=== PATIENT | male | born 1955 | race Caucasian/White ===

== ENCOUNTER → 2016-03-31 | Outpatient (CLI) | payer OTHER ==
[~2016-03-31] MED LIST: Ambien PO; BUPROPION HCL100 M1 PO; BUPROPION HCL150 M2 PO; CLONAZEPAM0.5 MG PO; DESYREL 150 MG150 MG PO; ENDOCET 5-3251 EACH PO; GEODON60 MG PO; GLUCOPHAGE1000 MG PO; Glucophage PO; HUMALOG100 UNIT/1 SC; HUMULIN R500 UNITS/ SC; Habitrol,Nicoderm CQ TD; INVanz IV; LANTUS 3 M100 UNITS1 SC; LEVOFLOXACIN750 MG PO; LISINOPRIL40 MG PO; Lexapro PO; METFORMIN HCL1000 MG PO; NOVOLOG PE100 UNITS/ SC; OXYCODONE-ACET1 EACH PO; ROCEPHIN1000 MG IV; SIMVASTATIN40 MG PO; TRAZODONE HCL150 MG PO; WELLBUTRIN SR200 MG PO; Xanax PO; ZESTRIL40 MG PO; ZOCOR40 MG PO; ZOCOR80 MG PO; Zestril,Prinivil PO
== END | disposition home or self-care (01) ==
LOC: PICC 14:53
DX: M86.671 Other chronic osteomyelitis, right ankle and foot (principal)
CPT/HCPCS: 76937

== ENCOUNTER 2016-07-10 15:39 | Inpatient (IN) | payer OTHER ==
[~2016-07-10] VITALS: Ht 177.8 cm; Wt 117.7 kg
[~2016-07-10 15:39] MED LIST changes: -BACTRIM,SEPT1 TABLET PO; -HUMALOG KW200 UNIT/1 SC; -NAPROXEN500 MG PO; -PROPRANOLOL HCL20 MG PO; -TRULICITY1.5 MG/0.5 SC
[2016-07-10 16:39] LABS: EOSINOPHIL (%) 0.3 % (0-5); HEMATOCRIT 27.6 % (38.0-50.0); IMMATURE GRANULOCYTE (%) 4.5 % (0.0-0.7); IMMATURE GRANULOCYTE COUNT 0.7 K/uL; INSTRUMENT ABS NEUTROPHIL CT 12.4 K/uL; LYMPHOCYTE COUNT 1.3 K/uL (1.0-2.8); MCH 30.7 PG (29.0-34.0); MCHC 34.4 G/DL (30.0-36.0); MCV 89.3 FL (86-99); MEAN PLAT.VOLUME 9.6 uM^3 (9.0-12.4); MONOCYTE (%) 5.6 % (3-12); MONOCYTE COUNT 0.9 K/uL (0-0.8); NEUTROPHIL (%) 81.2 % (45-76); NEUTROPHIL COUNT 12.4 K/uL (1.8-6.4); PLATELET COUNT 432 K/uL (156-360); RBC DIS.WIDTH-CV 13.1 % (11.8-14.6); RBC DIS.WIDTH-SD 42.5 % (39-53); RED BLOOD COUNT 3.09 M/uL (4.00-5.50); WHITE BLOOD COUNT 15.2 K/uL (4.1-10.2)
[2016-07-10 16:50] LABS: CHLORIDE 92 mEq/L (99-109); POTASSIUM 4.7 mEq/L (3.7-5.4); SODIUM 128 mEq/L (136-147)
[2016-07-10 16:52] LABS: GLUCOSE 227 mg/dL (70-99)
[2016-07-10 16:53] LABS: ANION GAP 9 MEQ/L (2-14)
[2016-07-10 16:56] LABS: GFR ESTIMATE (CALCULATED) 35 mL/min/
[2016-07-10 16:57] LABS: UREA NITROGEN (BUN) 32 mg/dL (9-23)
[2016-07-10] MEDS ORDERED: HUMALOG KW200 UNIT/1 SC (19:50)
[2016-07-10] MEDS ORDERED: NAPROXEN500 MG PO (19:51)
[2016-07-10] MEDS ORDERED: BACTRIM,SEPT1 TABLET PO (19:51)
[2016-07-10] MEDS ORDERED: TRULICITY1.5 MG/0.5 SC (19:51)
[2016-07-10] MEDS ORDERED: BUPROPION HCL150 M2 PO (19:52)
[2016-07-10] MEDS ORDERED: PROPRANOLOL HCL20 MG PO (19:52)
[2016-07-10] MEDS ORDERED: SIMVASTATIN40 MG PO (19:52)
[2016-07-10 22:02] LABS: URIC ACID 7.2 mg/dL (3.1-9.2)
[2016-07-10 22:53] LABS: FERRITIN 774 NG/ML (22-322)
[2016-07-10 22:56] VITALS: BP 143/67
[2016-07-10 23:52] VITALS: BP 152/70
[2016-07-10 23:56] LABS: IRON 30 MCG/DL (35-150)
[2016-07-11 03:29] VITALS: BP 135/81
[2016-07-11 05:21] LABS: EOSINOPHIL (%) 0.6 % (0-5); EOSINOPHIL COUNT 0.1 K/uL (0-0.3); IMMATURE GRANULOCYTE (%) 4.7 % (0.0-0.7); IMMATURE GRANULOCYTE COUNT 0.6 K/uL; INSTRUMENT ABS NEUTROPHIL CT 10.2 K/uL; LYMPHOCYTE COUNT 1.2 K/uL (1.0-2.8); MCH 30.7 PG (29.0-34.0); MCHC 34.2 G/DL (30.0-36.0); MCV 89.9 FL (86-99); MEAN PLAT.VOLUME 9.5 uM^3 (9.0-12.4); MONOCYTE COUNT 0.9 K/uL (0-0.8); NEUTROPHIL (%) 78.5 % (45-76); NEUTROPHIL COUNT 10.2 K/uL (1.8-6.4); PLATELET COUNT 336 K/uL (156-360); RBC DIS.WIDTH-CV 13.1 % (11.8-14.6); RED BLOOD COUNT 2.67 M/uL (4.00-5.50)
[2016-07-11 05:54] LABS: ANION GAP 9 MEQ/L (2-14); CHLORIDE 94 MEQ/L (99-109); GFR ESTIMATE (CALCULATED) 39 mL/min/; GLUCOSE 165 mg/dL (70-99); POTASSIUM 4.2 MEQ/L (3.7-5.4); SAMPLE HEMOLYSIS CHECK 0; SAMPLE ICTERIC CHECK 0; SAMPLE LIPEMIA CHECK 0; SODIUM 128 MEQ/L (136-147); UREA NITROGEN (BUN) 30 mg/dL (9-23)
[2016-07-11 08:00] VITALS: BP 128/58
[2016-07-11 12:02] VITALS: BP 136/66
[2016-07-11 12:11] LABS: POINT-OF-CARE METER ID UU14188577
[2016-07-11 16:43] LABS: POINT-OF-CARE METER ID UU14188577
[2016-07-11 17:15] VITALS: BP 143/68
[2016-07-11 20:25] VITALS: BP 142/74
[2016-07-11 21:54] LABS: POINT-OF-CARE METER ID UU14149397
[2016-07-12 00:28] VITALS: BP 149/71
[2016-07-12 04:12] VITALS: BP 139/66
[2016-07-12 05:27] LABS: HEMATOCRIT 25.6 % (38.0-50.0); MCH 30.2 PG (29.0-34.0); MCHC 33.6 G/DL (30.0-36.0); MCV 89.8 FL (86-99); MEAN PLAT.VOLUME 9.4 uM^3 (9.0-12.4); PLATELET COUNT 349 K/uL (156-360); RBC DIS.WIDTH-SD 42.9 % (39-53); RED BLOOD COUNT 2.85 M/uL (4.00-5.50); WHITE BLOOD COUNT 12.5 K/uL (4.1-10.2)
[2016-07-12 06:01] LABS: ALKALINE PHOSPHATASE 72 IU/L (3-129); ANION GAP 8 MEQ/L (2-14); CHLORIDE 96 MEQ/L (99-109); GFR ESTIMATE (CALCULATED) 47 mL/min/; POTASSIUM 4.8 MEQ/L (3.7-5.4); SAMPLE HEMOLYSIS CHECK 0; SAMPLE ICTERIC CHECK 0; SAMPLE LIPEMIA CHECK 0; SODIUM 129 MEQ/L (136-147); TOTAL BILIRUBIN 0.5 MG/DL (0.0-1.0); UREA NITROGEN (BUN) 20 mg/dL (9-23)
[2016-07-12 06:02] LABS: GLUCOSE 108 mg/dL (70-99)
[2016-07-12 06:45] LABS: ABS NEUTROPHIL COUNT 10.6; EOSINOPHIL ABS CT 0.3; EOSINOPHILS 2.6 % (0-5.0); INSTRUMENT ABS NEUTROPHIL CT 9.5 K/uL; LYMPHOCYTES 10.4 % (15.0-45.0); METAMYELOCYTES 0.9 %; PLAT.SUFFICIENCY ADEQUATE; SEG.NEUTROPHILS 84.4 % (46.0-76.0)
[2016-07-12 07:00] VITALS: BP 135/68
[2016-07-12 12:01] LABS: POINT-OF-CARE METER ID UU14188577
[2016-07-12 15:17] LABS: POINT-OF-CARE METER ID UU13113675
[2016-07-12 19:38] VITALS: BP 143/71
[2016-07-12 22:20] LABS: ADD MIUA? YES; BILIRUBIN NEGATIVE; BLOOD LARGE; COLOR YELLOW ((YELLOW)); GLUCOSE (STRIP) 50; KETONES 5; LEUKOCYTES NEGATIVE; NITRITE NEGATIVE; PROTEIN (STRIP) NEGATIVE; SPECIFIC GRAVITY 1.012 (1.000-1.030); UROBILINOGEN 0.2 MG/DL (0.2-1.0)
[2016-07-12 23:04] LABS: UNCLASSIFIED CRYSTALS 2+ /HPF
[2016-07-12 23:13] LABS: BACTERIA RARE /HPF; CASTS NONE SEEN /LPF; CRYSTALS NONE SEEN; EPITHELIAL CELLS NONE SEEN /HPF; MUCUS TRACE /LPF; RED BLOOD CELLS 20-30 /HPF (0-5); UCUL ADDED? NO; WHITE BLOOD CELLS 0-5 /HPF (0-5)
[2016-07-13] VITALS (7 sets, daily range): BP systolic 127–156; BP diastolic 67–78
[2016-07-13 05:26] LABS: EOSINOPHIL (%) 1.3 % (0-5); EOSINOPHIL COUNT 0.2 K/uL (0-0.3); HEMATOCRIT 24.7 % (38.0-50.0); IMMATURE GRANULOCYTE (%) 4.9 % (0.0-0.7); IMMATURE GRANULOCYTE COUNT 0.6 K/uL; INSTRUMENT ABS NEUTROPHIL CT 8.3 K/uL; LYMPHOCYTE COUNT 1.4 K/uL (1.0-2.8); MCH 30.6 PG (29.0-34.0); MCHC 33.6 G/DL (30.0-36.0); MCV 91.1 FL (86-99); MEAN PLAT.VOLUME 9.2 uM^3 (9.0-12.4); MONOCYTE (%) 6.1 % (3-12); MONOCYTE COUNT 0.7 K/uL (0-0.8); NEUTROPHIL (%) 74.7 % (45-76); NEUTROPHIL COUNT 8.3 K/uL (1.8-6.4); PLATELET COUNT 317 K/uL (156-360); RBC DIS.WIDTH-CV 13.2 % (11.8-14.6); RBC DIS.WIDTH-SD 44.2 % (39-53); RED BLOOD COUNT 2.71 M/uL (4.00-5.50); WHITE BLOOD COUNT 11.1 K/uL (4.1-10.2)
[2016-07-13 05:49] LABS: ALKALINE PHOSPHATASE 62 IU/L (3-129); ANION GAP 6 MEQ/L (2-14); CHLORIDE 97 MEQ/L (99-109); GFR ESTIMATE (CALCULATED) 51 mL/min/; GLUCOSE 124 mg/dL (70-99); POTASSIUM 4.9 MEQ/L (3.7-5.4); SAMPLE HEMOLYSIS CHECK 0; SAMPLE ICTERIC CHECK 0; SAMPLE LIPEMIA CHECK 0; SODIUM 129 MEQ/L (136-147); TOTAL BILIRUBIN 0.4 MG/DL (0.0-1.0); UREA NITROGEN (BUN) 18 mg/dL (9-23)
[2016-07-13 12:09] LABS: POINT-OF-CARE METER ID UU14149397
[2016-07-13 16:52] LABS: POINT-OF-CARE METER ID UU14149397
[2016-07-13 21:26] LABS: POINT-OF-CARE METER ID UU14188577
[2016-07-14 05:25] LABS: EOSINOPHIL (%) 1.2 % (0-5); EOSINOPHIL COUNT 0.2 K/uL (0-0.3); HEMATOCRIT 24.8 % (38.0-50.0); IMMATURE GRANULOCYTE (%) 3.9 % (0.0-0.7); IMMATURE GRANULOCYTE COUNT 0.5 K/uL; INSTRUMENT ABS NEUTROPHIL CT 9.6 K/uL; LYMPHOCYTE COUNT 1.6 K/uL (1.0-2.8); MCH 29.7 PG (29.0-34.0); MCHC 32.7 G/DL (30.0-36.0); MCV 90.8 FL (86-99); MEAN PLAT.VOLUME 9.1 uM^3 (9.0-12.4); MONOCYTE (%) 6.5 % (3-12); MONOCYTE COUNT 0.8 K/uL (0-0.8); NEUTROPHIL (%) 75.5 % (45-76); NEUTROPHIL COUNT 9.6 K/uL (1.8-6.4); PLATELET COUNT 318 K/uL (156-360); RBC DIS.WIDTH-CV 13.1 % (11.8-14.6); RBC DIS.WIDTH-SD 43.1 % (39-53); RED BLOOD COUNT 2.73 M/uL (4.00-5.50); WHITE BLOOD COUNT 12.7 K/uL (4.1-10.2)
[2016-07-14 05:48] LABS: ALKALINE PHOSPHATASE 59 IU/L (3-129); ANION GAP 5 MEQ/L (2-14); CHLORIDE 99 MEQ/L (99-109); GFR ESTIMATE (CALCULATED) 55 mL/min/; GLUCOSE 97 mg/dL (70-99); POTASSIUM 4.9 MEQ/L (3.7-5.4); SAMPLE HEMOLYSIS CHECK 0; SAMPLE ICTERIC CHECK 0; SAMPLE LIPEMIA CHECK 0; SODIUM 130 MEQ/L (136-147); TOTAL BILIRUBIN 0.4 MG/DL (0.0-1.0); UREA NITROGEN (BUN) 16 mg/dL (9-23)
[2016-07-14 06:23] LABS: POINT-OF-CARE METER ID UU14149397
[2016-07-14 08:01] VITALS: BP 141/67
[2016-07-14 11:18] VITALS: BP 164/84
[2016-07-14 12:00] LABS: POINT-OF-CARE METER ID UU14149397
[2016-07-14 16:23] VITALS: BP 174/80
[2016-07-14 19:34] VITALS: BP 146/76
[2016-07-14 23:39] VITALS: BP 136/69
[2016-07-15 05:11] LABS: HEMATOCRIT 23.5 % (38.0-50.0); MCH 30.1 PG (29.0-34.0); MCHC 32.8 G/DL (30.0-36.0); MCV 91.8 FL (86-99); MEAN PLAT.VOLUME 9.1 uM^3 (9.0-12.4); PLATELET COUNT 283 K/uL (156-360); RBC DIS.WIDTH-CV 13.3 % (11.8-14.6); RBC DIS.WIDTH-SD 44.9 % (39-53); RED BLOOD COUNT 2.56 M/uL (4.00-5.50)
[2016-07-15 05:35] LABS: ANION GAP 6 MEQ/L (2-14); CHLORIDE 98 MEQ/L (99-109); GFR ESTIMATE (CALCULATED) 55 mL/min/; GLUCOSE 130 mg/dL (70-99); POTASSIUM 4.7 MEQ/L (3.7-5.4); SAMPLE HEMOLYSIS CHECK 0; SAMPLE ICTERIC CHECK 0; SAMPLE LIPEMIA CHECK 0; SODIUM 131 MEQ/L (136-147); UREA NITROGEN (BUN) 13 mg/dL (9-23)
[2016-07-15 08:55] VITALS: BP 158/74
[2016-07-15 09:01] LABS: POINT-OF-CARE METER ID UU14188577
[2016-07-15 11:10] LABS: FERRITIN 457 NG/ML (22-322); IRON 55 MCG/DL (35-150)
[2016-07-15 16:54] LABS: POINT-OF-CARE METER ID UU14188577
[2016-07-15 17:45] VITALS: BP 160/75
[2016-07-15 23:28] VITALS: BP 130/71
[2016-07-16 05:56] LABS: ANION GAP 5 MEQ/L (2-14); CHLORIDE 99 MEQ/L (99-109); GFR ESTIMATE (CALCULATED) 55 mL/min/; GLUCOSE 105 mg/dL (70-99); POTASSIUM 4.4 MEQ/L (3.7-5.4); SAMPLE HEMOLYSIS CHECK 0; SAMPLE ICTERIC CHECK 0; SAMPLE LIPEMIA CHECK 0; SODIUM 133 MEQ/L (136-147); UREA NITROGEN (BUN) 11 mg/dL (9-23)
[2016-07-16 05:59] LABS: HEMATOCRIT 24.7 % (38.0-50.0); MCH 30.2 PG (29.0-34.0); MCHC 32.8 G/DL (30.0-36.0); MCV 92.2 FL (86-99); MEAN PLAT.VOLUME 9.3 uM^3 (9.0-12.4); PLATELET COUNT 305 K/uL (156-360); RBC DIS.WIDTH-CV 13.3 % (11.8-14.6); RBC DIS.WIDTH-SD 44.8 % (39-53); RED BLOOD COUNT 2.68 M/uL (4.00-5.50); WHITE BLOOD COUNT 9.7 K/uL (4.1-10.2)
[2016-07-16 07:56] VITALS: BP 167/81
[2016-07-16 11:47] LABS: POINT-OF-CARE METER ID UU14188577
[2016-07-16 16:44] VITALS: BP 160/68
[2016-07-16 22:35] LABS: POINT-OF-CARE METER ID UU14188577
[2016-07-17 00:52] VITALS: BP 130/66
[2016-07-17 05:04] LABS: EOSINOPHIL (%) 1.3 % (0-5); EOSINOPHIL COUNT 0.1 K/uL (0-0.3); HEMATOCRIT 23.8 % (38.0-50.0); IMMATURE GRANULOCYTE (%) 1.7 % (0.0-0.7); IMMATURE GRANULOCYTE COUNT 0.2 K/uL; LYMPHOCYTE COUNT 2.1 K/uL (1.0-2.8); MCH 29.9 PG (29.0-34.0); MCHC 33.2 G/DL (30.0-36.0); MCV 90.2 FL (86-99); MEAN PLAT.VOLUME 9.1 uM^3 (9.0-12.4); MONOCYTE (%) 6.1 % (3-12); MONOCYTE COUNT 0.7 K/uL (0-0.8); NEUTROPHIL (%) 71.5 % (45-76); PLATELET COUNT 313 K/uL (156-360); RBC DIS.WIDTH-CV 13.5 % (11.8-14.6); RBC DIS.WIDTH-SD 43.8 % (39-53); RED BLOOD COUNT 2.64 M/uL (4.00-5.50); WHITE BLOOD COUNT 11.2 K/uL (4.1-10.2)
[2016-07-17 05:21] LABS: CHLORIDE 101 mEq/L (99-109); POTASSIUM 4.6 mEq/L (3.7-5.4); SODIUM 133 mEq/L (136-147)
[2016-07-17 05:23] LABS: GLUCOSE 128 mg/dL (70-99)
[2016-07-17 05:24] LABS: ANION GAP 7 MEQ/L (2-14)
[2016-07-17 05:27] LABS: GFR ESTIMATE (CALCULATED) > 59 mL/min/
[2016-07-17 05:28] LABS: UREA NITROGEN (BUN) 13 mg/dL (9-23)
[2016-07-17 07:29] VITALS: BP 161/74
[2016-07-17 11:59] LABS: POINT-OF-CARE METER ID UU14149397
[2016-07-17 14:56] VITALS: BP 162/77
[2016-07-17 18:04] LABS: POINT-OF-CARE METER ID UU13113675; POINT-OF-CARE USER ID 515036437
[2016-07-17 18:09] LABS: EOSINOPHIL (%) 1.3 % (0-5); EOSINOPHIL COUNT 0.1 K/uL (0-0.3); HEMATOCRIT 22.2 % (38.0-50.0); IMMATURE GRANULOCYTE (%) 1.6 % (0.0-0.7); IMMATURE GRANULOCYTE COUNT 0.2 K/uL; INSTRUMENT ABS NEUTROPHIL CT 7.4 K/uL; LYMPHOCYTE COUNT 2.1 K/uL (1.0-2.8); MCH 30.9 PG (29.0-34.0); MCHC 33.8 G/DL (30.0-36.0); MCV 91.4 FL (86-99); MONOCYTE (%) 7.1 % (3-12); MONOCYTE COUNT 0.8 K/uL (0-0.8); NEUTROPHIL (%) 69.7 % (45-76); NEUTROPHIL COUNT 7.4 K/uL (1.8-6.4); PLATELET COUNT 249 K/uL (156-360); RBC DIS.WIDTH-CV 13.3 % (11.8-14.6); RBC DIS.WIDTH-SD 44.4 % (39-53); RED BLOOD COUNT 2.43 M/uL (4.00-5.50); WHITE BLOOD COUNT 10.6 K/uL (4.1-10.2)
[2016-07-17 18:29] LABS: TROP-I INTERPRETATION NEGATIVE; TROPONIN-I < 0.01 ng/mL (0.0-0.30)
[2016-07-17 21:33] LABS: POINT-OF-CARE METER ID UU14149397
[2016-07-18] VITALS: BP 131/72
[2016-07-18 05:41] LABS: TROP-I INTERPRETATION NEGATIVE; TROPONIN-I < 0.01 ng/mL (0.0-0.30)
[2016-07-18 06:05] LABS: EOSINOPHIL (%) 0.7 % (0-5); EOSINOPHIL COUNT 0.1 K/uL (0-0.3); HEMATOCRIT 26.4 % (38.0-50.0); IMMATURE GRANULOCYTE (%) 1.1 % (0.0-0.7); IMMATURE GRANULOCYTE COUNT 0.2 K/uL; INSTRUMENT ABS NEUTROPHIL CT 10.7 K/uL; LYMPHOCYTE COUNT 1.3 K/uL (1.0-2.8); MCHC 33.3 G/DL (30.0-36.0); MCV 90.1 FL (86-99); MEAN PLAT.VOLUME 9.4 uM^3 (9.0-12.4); MONOCYTE (%) 6.9 % (3-12); MONOCYTE COUNT 0.9 K/uL (0-0.8); NEUTROPHIL (%) 81.5 % (45-76); NEUTROPHIL COUNT 10.7 K/uL (1.8-6.4); PLATELET COUNT 278 K/uL (156-360); RBC DIS.WIDTH-CV 13.7 % (11.8-14.6); RBC DIS.WIDTH-SD 45.1 % (39-53); WHITE BLOOD COUNT 13.2 K/uL (4.1-10.2)
[2016-07-18 06:19] LABS: ANION GAP 6 MEQ/L (2-14); CHLORIDE 98 MEQ/L (99-109); GFR ESTIMATE (CALCULATED) > 59 mL/min/; GLUCOSE 158 mg/dL (70-99); POTASSIUM 4.5 MEQ/L (3.7-5.4); SAMPLE HEMOLYSIS CHECK 0; SAMPLE ICTERIC CHECK 0; SAMPLE LIPEMIA CHECK 0; SODIUM 132 MEQ/L (136-147); UREA NITROGEN (BUN) 12 mg/dL (9-23)
[2016-07-18 06:35] LABS: RED BLOOD COUNT 2.93 M/uL (4.00-5.50)
[2016-07-18 07:28] VITALS: BP 162/82
[2016-07-18 15:37] VITALS: BP 165/78
[2016-07-18 16:32] LABS: POINT-OF-CARE METER ID UU14188577
[2016-07-18 23:10] LABS: POINT-OF-CARE METER ID UU14188577
[2016-07-18 23:36] VITALS: BP 171/77
[2016-07-19 04:57] VITALS: BP 131/69
[2016-07-19 05:26] LABS: EOSINOPHIL COUNT 0.1 K/uL (0-0.3); HEMATOCRIT 21.8 % (38.0-50.0); IMMATURE GRANULOCYTE (%) 1.7 % (0.0-0.7); IMMATURE GRANULOCYTE COUNT 0.2 K/uL; INSTRUMENT ABS NEUTROPHIL CT 7.7 K/uL; MCH 29.9 PG (29.0-34.0); MCV 90.5 FL (86-99); MEAN PLAT.VOLUME 8.8 uM^3 (9.0-12.4); MONOCYTE (%) 8.9 % (3-12); NEUTROPHIL (%) 70.1 % (45-76); NEUTROPHIL COUNT 7.7 K/uL (1.8-6.4); PLATELET COUNT 222 K/uL (156-360); RBC DIS.WIDTH-SD 45.2 % (39-53); RED BLOOD COUNT 2.41 M/uL (4.00-5.50)
[2016-07-19 05:49] LABS: ANION GAP 4 MEQ/L (2-14); CHLORIDE 98 MEQ/L (99-109); GFR ESTIMATE (CALCULATED) 55 mL/min/; POTASSIUM 4.2 MEQ/L (3.7-5.4); SAMPLE HEMOLYSIS CHECK 0; SAMPLE ICTERIC CHECK 0; SAMPLE LIPEMIA CHECK 0; SODIUM 132 MEQ/L (136-147); UREA NITROGEN (BUN) 17 mg/dL (9-23)
[2016-07-19 05:50] LABS: GLUCOSE 117 mg/dL (70-99)
[2016-07-19 08:35] VITALS: BP 138/61
[2016-07-19 12:35] LABS: HEMATOCRIT 22.4 % (38.0-50.0); MCH 30.5 PG (29.0-34.0); MCHC 33.5 G/DL (30.0-36.0); MCV 91.1 FL (86-99); MEAN PLAT.VOLUME 9.1 uM^3 (9.0-12.4); PLATELET COUNT 241 K/uL (156-360); RBC DIS.WIDTH-CV 14.1 % (11.8-14.6); RBC DIS.WIDTH-SD 45.9 % (39-53); RED BLOOD COUNT 2.46 M/uL (4.00-5.50); WHITE BLOOD COUNT 12.4 K/uL (4.1-10.2)
[2016-07-19] MEDS ORDERED: ROCEPHIN 2 GM VI2 GM IM (13:07)
[2016-07-19] MEDS ORDERED: NAPROXEN500 MG PO (13:08)
[2016-07-19] MEDS ORDERED: SENNA PLUS TAB1 EACH PO (13:09)
[2016-07-19] MEDS ORDERED: POLYETHYLENE GL17 GM PO (13:09)
[2016-07-19] MEDS ORDERED: LEVEMIR100 UNIT/2 SC (13:10)
[2016-07-19] MEDS ORDERED: NOVOLOG PE100 UNITS/ SC (13:10)
[2016-07-19] MEDS ORDERED: LIDOCAINE700 MG TD (13:10)
[2016-07-19] MEDS ORDERED: OXYCODONE HCL5 MG PO (13:13)
[2016-07-19] MEDS ORDERED: CLONAZEPAM0.5 MG PO (13:15)
[2016-07-19 15:26] VITALS: BP 113/71; BP 121/68
[2016-07-20 09:09] LABS: POC NON-PRINT COM 1 ND
[2016-07-26] MEDS ORDERED: TUMS500 MG PO (09:28)
[2016-07-26] MEDS ORDERED: NAPROXEN500 MG PO (09:28)
[2016-07-26] MEDS ORDERED: CHLORPROMAZINE10 MG PO (09:29)
== END 2016-07-19 17:12 | DRG 908 ==
LOC: EME 15:39 → 3EAST 21:00 → EDOF 21:00 → 3EAST 22:34
PROVIDERS: Hospitalist; Internal Medicine; Physician Assistant; Surgery
PROC: 0LBV0ZZ Excision of Right Foot Tendon, Open Approach (ICD-10-PCS; 2016-07-12)
PROC: 0Y6H0Z1 Detachment at Right Lower Leg, High, Open Approach (ICD-10-PCS; principal; 2016-07-17)
DX: T81.31XA Disruption of external operation (surgical) wound, not elsewhere classified, initial encounter (principal); R78.81 Bacteremia; N17.9 Acute kidney failure, unspecified; E11.52 Type 2 diabetes mellitus with diabetic peripheral angiopathy with gangrene; E11.621 Type 2 diabetes mellitus with foot ulcer; T87.43 Infection of amputation stump, right lower extremity; E87.1 Hypo-osmolality and hyponatremia; E83.51 Hypocalcemia; M86.671 Other chronic osteomyelitis, right ankle and foot; E11.65 Type 2 diabetes mellitus with hyperglycemia; G60.8 Other hereditary and idiopathic neuropathies; D69.6 Thrombocytopenia, unspecified; E66.01 Morbid (severe) obesity due to excess calories; I10 Essential (primary) hypertension; E78.5 Hyperlipidemia, unspecified; M19.90 Unspecified osteoarthritis, unspecified site; F32.9 Major depressive disorder, single episode, unspecified; F41.9 Anxiety disorder, unspecified; D64.9 Anemia, unspecified; E86.0 Dehydration; J45.909 Unspecified asthma, uncomplicated; F40.240 Claustrophobia; M17.11 Unilateral primary osteoarthritis, right knee; R31.29 Other microscopic hematuria; M89.9 Disorder of bone, unspecified; B95.61 Methicillin susceptible Staphylococcus aureus infection as the cause of diseases classified elsewhere; Z68.37 Body mass index [BMI] 37.0-37.9, adult; Z91.19 Patient's noncompliance with other medical treatment and regimen; Z89.439 Acquired absence of unspecified foot; Z87.891 Personal history of nicotine dependence
CPT/HCPCS: 71010; 73564; 73630; 76937; 80048; 80048 91; 80053; 81003; 82272; 82436; 82607; 82728; 82746; 82948; 83540; 83605; 84133; 84300; 84443; 84466; 84484; 84550; 85025; 85025 91; 85027; 85651; 86140; 86900; 86901; 86920; 87040; 87070; 87075; 87077; 87147; 87186; 87205; 87801; 88305; 88307; 93005; 93306; 93971; 96365; 97530 GP; 99281; 99285; A6260; J0690; J0696; J1170; J1644; J1815; J1885; J2250; J2405; J2543; J3010; J7030; J7050; P9016; P9045

== ENCOUNTER → 2016-07-10 | Outpatient (CLI) | payer OTHER ==
[~2016-07-10] MED LIST changes: +BACTRIM,SEPT1 TABLET PO; +HUMALOG KW200 UNIT/1 SC; +NAPROXEN500 MG PO; +PROPRANOLOL HCL20 MG PO; +TRULICITY1.5 MG/0.5 SC; +[UNRECOGNIZED DRUG - OTHER] SC
== END | disposition home or self-care (01) ==
LOC: PICC 10:25
DX: S91.301D Unspecified open wound, right foot, subsequent encounter (principal)
CPT/HCPCS: 76937

== ENCOUNTER 2016-07-26 20:47 | Inpatient (IN) | payer OTHER ==
[~2016-07-26] VITALS: Ht 175.3 cm; Wt 105.7 kg
[~2016-07-26 20:47] MED LIST changes: +BACTRIM,SEPT1 TABLET PO; +CHLORPROMAZINE10 MG PO; +HUMALOG KW200 UNIT/1 SC; +LEVEMIR100 UNIT/2 SC; +LIDOCAINE700 MG TD; +NAPROXEN500 MG PO; +OXYCODONE HCL5 MG PO; +POLYETHYLENE GL17 GM PO; +PROPRANOLOL HCL20 MG PO; +ROCEPHIN 2 GM VI2 GM IM; +SENNA PLUS TAB1 EACH PO; +TRULICITY1.5 MG/0.5 SC; +TUMS500 MG PO
[2016-07-26 21:53] LABS: HEMATOCRIT 29.2 % (38.0-50.0); MCH 30.6 PG (29.0-34.0); MCHC 35.3 G/DL (30.0-36.0); PLATELET COUNT 249 K/uL (156-360); RBC DIS.WIDTH-CV 13.9 % (11.8-14.6); RED BLOOD COUNT 3.37 M/uL (4.00-5.50)
[2016-07-26 21:54] LABS: MCV 86.6 FL (86-99)
[2016-07-26 21:58] LABS: CHLORIDE 98 mEq/L (99-109); POTASSIUM 3.9 mEq/L (3.7-5.4); SODIUM 132 mEq/L (136-147)
[2016-07-26 22:00] LABS: GLUCOSE 213 mg/dL (70-99)
[2016-07-26 22:01] LABS: ANION GAP 11 MEQ/L (2-14)
[2016-07-26 22:02] LABS: TOTAL BILIRUBIN 1.3 mg/dL (0.0-1.0)
[2016-07-26 22:03] LABS: SERUM ETHYL ALCOHOL < 10 mg/dL
[2016-07-26 22:04] LABS: ALKALINE PHOSPHATASE 79 IU/L (3-129); GFR ESTIMATE (CALCULATED) 44 mL/min/
[2016-07-26 22:05] LABS: UREA NITROGEN (BUN) 14 mg/dL (9-23)
[2016-07-26 22:31] VITALS: BP 165/78
[2016-07-27 00:19] LABS: POINT-OF-CARE METER ID UU13113830
[2016-07-27 07:42] VITALS: BP 157/78
[2016-07-27 11:37] LABS: POINT-OF-CARE METER ID UU13113830; POINT-OF-CARE USER ID BHSTSA
[2016-07-27 15:30] VITALS: BP 148/65
[2016-07-27 16:42] LABS: POINT-OF-CARE METER ID UU13113830
[2016-07-27 21:26] LABS: POINT-OF-CARE METER ID UU13113830
[2016-07-28 06:18] LABS: POINT-OF-CARE METER ID UU13113830
[2016-07-28 07:45] VITALS: BP 138/80
[2016-07-28] MEDS ORDERED: ZIPRASIDONE HCL60 MG PO (11:09)
[2016-07-28 11:59] LABS: POINT-OF-CARE METER ID UU13113830
== END 2016-07-28 14:10 | DRG 885 ==
LOC: EME → EDBD 20:47 → EME 20:47 → 1WEST 21:49 → EDOF 21:49 → 1WEST 22:18
PROVIDERS: Emergency Medicine; Psychiatry & Neurology Psychiatry
DX: F33.9 Major depressive disorder, recurrent, unspecified (principal); R45.851 Suicidal ideations; Z89.511 Acquired absence of right leg below knee; F41.9 Anxiety disorder, unspecified; E11.40 Type 2 diabetes mellitus with diabetic neuropathy, unspecified; I10 Essential (primary) hypertension; Z91.5 Personal history of self-harm
CPT/HCPCS: 36415; 80053; 81003; 82948; 85027; 86900; 86901; 86920; 90837; 99281; 99284; G0480; J1815

== ENCOUNTER 2017-01-02 09:09 | Day surgery (SDC) | payer OTHER ==
[~2017-01-02] VITALS: Ht 177.8 cm; Wt 113.4 kg
[~2017-01-02 09:09] MED LIST changes: +INDERAL20 MG PO; +KLONOPIN0.5 M1 PO; +MELATONIN5 M1 PO; +PEPTO BISMOL262 MG PO; +PRINIVIL10 MG PO; +TRESIBA FL200 UNIT/1 SC; +ULTRAM50 MG PO; +WELLBUTRIN SR150 MG PO; +ZIPRASIDONE HCL60 MG PO
[2017-01-02 10:25] LABS: ANION GAP 10 MEQ/L (2-14); CHLORIDE 95 MEQ/L (99-109); GFR ESTIMATE (CALCULATED) 55 mL/min/; GLUCOSE 271 mg/dL (70-99); POTASSIUM 4.6 MEQ/L (3.7-5.4); SAMPLE HEMOLYSIS CHECK 0; SAMPLE ICTERIC CHECK 0; SAMPLE LIPEMIA CHECK 0; SODIUM 132 MEQ/L (136-147); UREA NITROGEN (BUN) 13 mg/dL (9-23)
[2017-01-02 10:49] VITALS: BP 104/59
[2017-01-02 10:56] LABS: POINT-OF-CARE METER ID UU14174212
[2017-01-02 11:11] LABS: METH RESISTANT S AUREUS PCR NEGATIVE (NEGATIVE)
[2017-01-02 11:13] LABS: PROBE CHECK PASS; SPECIMEN PROCESSING CONTROL PASS
[2017-01-02 13:42] LABS: POINT-OF-CARE METER ID UU13113675
[2017-01-02 13:57] VITALS: BP 155/76
[2017-01-02 15:00] VITALS: BP 145/75
[2017-01-03 12:14] LABS: POINT-OF-CARE METER ID UU14174212
== END 2017-01-02 15:30 | disposition home or self-care (01) ==
LOC: SDC 09:09
PROVIDERS: Neurological Surgery
PROC: 0QU03JZ Supplement Lumbar Vertebra with Synthetic Substitute, Percutaneous Approach (ICD-10-PCS; principal; 2017-01-02)
DX: S32.030A Wedge compression fracture of third lumbar vertebra, initial encounter for closed fracture (principal); W18.30XA Fall on same level, unspecified, initial encounter; Y93.E9 Activity, other interior property and clothing maintenance; Y92.007 Garden or yard of unspecified non-institutional (private) residence as the place of occurrence of the external cause; I10 Essential (primary) hypertension; E11.9 Type 2 diabetes mellitus without complications; J45.909 Unspecified asthma, uncomplicated; G47.30 Sleep apnea, unspecified; E66.9 Obesity, unspecified; Z68.35 Body mass index [BMI] 35.0-35.9, adult; K21.9 Gastro-esophageal reflux disease without esophagitis; R94.31 Abnormal electrocardiogram [ECG] [EKG]; Z89.511 Acquired absence of right leg below knee
CPT/HCPCS: 80048; 82948; 87641; J0330; J0690; J2250; J2405; J3010

== ENCOUNTER 2017-03-15 16:15 | Observation (INO) | payer OTHER ==
[~2017-03-15] VITALS: Ht 177.8 cm; Wt 122.7 kg
[2017-03-15 16:51] LABS: HEMATOCRIT 36.5 % (38.0-50.0); HEMOGLOBIN 13.1 G/DL (12.5-16.6); MCHC 35.9 G/DL (30.0-36.0); MCV 86.5 FL (86-99); PLATELET COUNT 251 K/uL (156-360); RBC DIS.WIDTH-CV 12.2 % (11.8-14.6); RBC DIS.WIDTH-SD 38.8 % (39-53); RED BLOOD COUNT 4.22 M/uL (4.00-5.50); WHITE BLOOD COUNT 14.9 K/uL (4.1-10.2)
[2017-03-15 17:03] LABS: CHLORIDE 97 mEq/L (99-109); POTASSIUM 5.7 mEq/L (3.7-5.4); SODIUM 132 mEq/L (136-147)
[2017-03-15 17:04] LABS: GLUCOSE 123 mg/dL (70-99)
[2017-03-15 17:08] LABS: CREATININE 2.3 mg/dL (0.6-1.3); GFR ESTIMATE (CALCULATED) 31 mL/min/ (58.99-99999); SERUM ETHYL ALCOHOL < 10 mg/dL
[2017-03-15 17:09] LABS: UREA NITROGEN (BUN) 35 mg/dL (9-23)
[2017-03-15 17:52] LABS: TROP-I INTERPRETATION NEGATIVE; TROPONIN-I 0.02 ng/mL (0.0-0.30)
[2017-03-15] MEDS ORDERED: LEVEMIR FL100 UNIT/1 SC (18:56)
[2017-03-15] MEDS ORDERED: SEROQUEL100 MG PO (18:56)
[2017-03-15] MEDS ORDERED: GLIPIZIDE XL5 MG PO (18:57)
[2017-03-15 22:12] LABS: APPEARANCE CLEAR ((CLEAR)); BILIRUBIN NEGATIVE; BLOOD SMALL; COLOR YELLOW ((YELLOW)); GLUCOSE (STRIP) 150; KETONES NEGATIVE; LEUKOCYTES NEGATIVE; NITRITE NEGATIVE; PROTEIN (STRIP) 30; SPECIFIC GRAVITY 1.016 (1.000-1.030); UROBILINOGEN 0.2 MG/DL (0.2-1.0)
[2017-03-15 22:16] LABS: BACTERIA NONE SEEN /HPF; EPITHELIAL CELLS NONE SEEN /HPF; HYALINE CASTS 0-5 /LPF; MUCUS NONE SEEN /LPF; RED BLOOD CELLS 15-20 /HPF (0-5); UCUL ADDED? NO; WHITE BLOOD CELLS 0-5 /HPF (0-5)
[2017-03-15 22:21] LABS: AMPHETAMINE NEGATIVE (500 ng/mL); BARBITURATES NEGATIVE (200 ng/mL); BENZODIAZEPINES NEGATIVE (150 ng/mL); BUPRENORPHINE NEGATIVE (10 ng/mL); COCAINE NEGATIVE (150 ng/mL); METHADONE NEGATIVE (200 ng/mL); METHAMPHETAMINE NEGATIVE (500 ng/mL); OPIATES (MORPHINE) NEGATIVE (100 ng/mL); OXYCODONE NEGATIVE (100 ng/mL); PHENCYCLIDINE NEGATIVE (25 ng/mL); PROPOXYPHENE NEGATIVE (300 ng/mL); THC CANNABINOIDS NEGATIVE (50 ng/mL); TRICYCLIC ANTIDEPRESSANTS NEGATIVE (300 ng/mL)
[2017-03-15 23:20] VITALS: BP 92/54
[2017-03-16 04:14] VITALS: BP 134/63
[2017-03-16 05:34] LABS: HEMATOCRIT 31.3 % (38.0-50.0); MCH 31.3 PG (29.0-34.0); MCHC 35.1 G/DL (30.0-36.0); MCV 88.9 FL (86-99); PLATELET COUNT 211 K/uL (156-360); RBC DIS.WIDTH-CV 12.7 % (11.8-14.6); RBC DIS.WIDTH-SD 41.1 % (39-53); RED BLOOD COUNT 3.52 M/uL (4.00-5.50); WHITE BLOOD COUNT 12.8 K/uL (4.1-10.2)
[2017-03-16 05:54] LABS: CHLORIDE 99 MEQ/L (99-109); SODIUM 133 MEQ/L (136-147); UREA NITROGEN (BUN) 30 mg/dL (9-23)
[2017-03-16 05:55] LABS: CREATININE 1.8 MG/DL (0.6-1.3); GLUCOSE 56 mg/dL (70-99)
[2017-03-16 05:57] LABS: GFR ESTIMATE (CALCULATED) 41 mL/min/ (58.99-99999); POTASSIUM 4.4 MEQ/L (3.7-5.4)
[2017-03-16 09:24] VITALS: BP 121/67
[2017-03-16 11:37] VITALS: BP 126/68
[2017-03-16 15:26] LABS: CHLORIDE 101 MEQ/L (99-109); CREATININE 1.7 MG/DL (0.6-1.3); GFR ESTIMATE (CALCULATED) 44 mL/min/ (58.99-99999); POTASSIUM 5.1 MEQ/L (3.7-5.4); SODIUM 130 MEQ/L (136-147); UREA NITROGEN (BUN) 27 mg/dL (9-23)
[2017-03-16 15:31] LABS: GLUCOSE 203 mg/dL (70-99)
[2017-03-16 15:35] VITALS: BP 156/83
[2017-03-16 19:42] VITALS: BP 149/69
[2017-03-16 23:56] VITALS: BP 112/59
[2017-03-17 03:29] VITALS: BP 123/63
[2017-03-17 08:36] VITALS: BP 122/63
[2017-03-17 10:36] LABS: CHLORIDE 102 MEQ/L (99-109); CREATININE 1.5 MG/DL (0.6-1.3); GFR ESTIMATE (CALCULATED) 51 mL/min/ (58.99-99999); GLUCOSE 137 mg/dL (70-99); POTASSIUM 4.9 MEQ/L (3.7-5.4); SODIUM 132 MEQ/L (136-147); UREA NITROGEN (BUN) 21 mg/dL (9-23)
[2017-03-17 10:44] VITALS: BP 175/88
[2017-03-17] MEDS ORDERED: VENLAFAXINE HCL75 M3 PO (13:59)
[2017-03-17 15:42] VITALS: BP 172/89
== END 2017-03-17 17:56 | disposition home or self-care (01) ==
LOC: EME 16:15 → EDOF 18:51 → 5WEST 18:51 → ENRESERV 18:53 → EDOF 18:58 → ENRESERV 19:31 → 5WEST 22:56
PROVIDERS: Emergency Medicine; Hospitalist; Internal Medicine
DX: N17.9 Acute kidney failure, unspecified (principal); F33.2 Major depressive disorder, recurrent severe without psychotic features; R45.851 Suicidal ideations; E87.5 Hyperkalemia; E87.1 Hypo-osmolality and hyponatremia; E11.9 Type 2 diabetes mellitus without complications; Z79.4 Long term (current) use of insulin; I73.9 Peripheral vascular disease, unspecified; Z89.511 Acquired absence of right leg below knee; I10 Essential (primary) hypertension; G47.00 Insomnia, unspecified; Z83.3 Family history of diabetes mellitus; D72.829 Elevated white blood cell count, unspecified; E86.0 Dehydration; E78.5 Hyperlipidemia, unspecified; F41.9 Anxiety disorder, unspecified
CPT/HCPCS: 71046; 80048; 80048 91; 81003; 82948; 84484; 85027; 93005; 99281; 99285; G0378; G0480; J1644; J1815; J7030

== ENCOUNTER 2017-03-19 10:13 | Inpatient (IN) | payer OTHER ==
[~2017-03-19] VITALS: Ht 177.8 cm; Wt 112.4 kg
[~2017-03-19 10:13] MED LIST changes: +GLIPIZIDE XL5 MG PO; +LEVEMIR FL100 UNIT/1 SC; +SEROQUEL100 MG PO; +VENLAFAXINE HCL75 M3 PO
[2017-03-19 11:43] LABS: AMPHETAMINE NEGATIVE (500 ng/mL); BENZODIAZEPINES NEGATIVE (150 ng/mL); COCAINE NEGATIVE (150 ng/mL); METHADONE NEGATIVE (200 ng/mL); METHAMPHETAMINE NEGATIVE (500 ng/mL); OPIATES (MORPHINE) NEGATIVE (100 ng/mL); PHENCYCLIDINE NEGATIVE (25 ng/mL); THC CANNABINOIDS NEGATIVE (50 ng/mL)
[2017-03-19 11:44] LABS: BARBITURATES NEGATIVE (200 ng/mL); BUPRENORPHINE NEGATIVE (10 ng/mL); OXYCODONE NEGATIVE (100 ng/mL); PROPOXYPHENE NEGATIVE (300 ng/mL); TRICYCLIC ANTIDEPRESSANTS PRESUMPTIVE POSITIVE (300 ng/mL)
[2017-03-19 11:57] LABS: HEMOGLOBIN 13.2 G/DL (12.5-16.6); MCH 31.4 PG (29.0-34.0); MCHC 35.7 G/DL (30.0-36.0); MCV 87.9 FL (86-99); PLATELET COUNT 249 K/uL (156-360); RBC DIS.WIDTH-CV 12.5 % (11.8-14.6); RBC DIS.WIDTH-SD 39.8 % (39-53); RED BLOOD COUNT 4.21 M/uL (4.00-5.50)
[2017-03-19 12:07] LABS: CHLORIDE 99 mEq/L (99-109); POTASSIUM 4.9 mEq/L (3.7-5.4); SODIUM 133 mEq/L (136-147)
[2017-03-19 12:12] LABS: GLUCOSE 297 mg/dL (70-99); SERUM ETHYL ALCOHOL < 10 mg/dL
[2017-03-19 12:13] LABS: CREATININE 1.9 mg/dL (0.6-1.3); GFR ESTIMATE (CALCULATED) 39 mL/min/ (58.99-99999)
[2017-03-19 12:14] LABS: UREA NITROGEN (BUN) 26 mg/dL (9-23)
[2017-03-19 13:05] LABS: APPEARANCE SL.HAZY ((CLEAR)); BILIRUBIN NEGATIVE; BLOOD MODERATE; COLOR YELLOW ((YELLOW)); GLUCOSE (STRIP) >=500; KETONES NEGATIVE; LEUKOCYTES NEGATIVE; NITRITE NEGATIVE; PROTEIN (STRIP) 30; SPECIFIC GRAVITY 1.029 (1.000-1.030); UROBILINOGEN 0.2 MG/DL (0.2-1.0)
[2017-03-19 13:12] LABS: BACTERIA NONE SEEN /HPF; EPITHELIAL CELLS RARE /HPF; HYALINE CASTS 20-30 /LPF; MUCUS TRACE /LPF; UCUL ADDED? NO; WHITE BLOOD CELLS 0-5 /HPF (0-5)
[2017-03-19] MEDS ORDERED: VENLAFAXINE HCL75 M3 PO (14:57)
[2017-03-19] MEDS ORDERED: ZIPRASIDONE HCL60 MG PO (15:09)
[2017-03-19 16:07] VITALS: BP 177/97
[2017-03-20 07:50] VITALS: BP 178/81
[2017-03-20 11:58] VITALS: BP 134/61
[2017-03-20 15:15] VITALS: BP 129/61
[2017-03-21 07:29] VITALS: BP 155/65
[2017-03-21 16:06] VITALS: BP 120/64; BP 182/75
[2017-03-21 18:25] VITALS: BP 131/76
[2017-03-22 07:59] VITALS: BP 133/68
[2017-03-22 16:46] VITALS: BP 120/67
[2017-03-23 07:48] VITALS: BP 137/66
[2017-03-23] MEDS ORDERED: CLONAZEPAM0.5 MG PO (09:10)
[2017-03-23] MEDS ORDERED: DULOXETINE HCL30 MG PO (09:10)
== END 2017-03-23 11:54 | disposition home or self-care (01) | DRG 885 ==
LOC: EME 10:13 → 1WEST 13:57 → EDOF 13:57 → 1WEST 15:45 → ENRESERV 15:54 → 1WEST 03-21 15:52
PROVIDERS: Emergency Medicine; Psychiatry & Neurology Psychiatry
DX: F33.2 Major depressive disorder, recurrent severe without psychotic features (principal); R45.851 Suicidal ideations; N17.9 Acute kidney failure, unspecified; E11.42 Type 2 diabetes mellitus with diabetic polyneuropathy; E11.51 Type 2 diabetes mellitus with diabetic peripheral angiopathy without gangrene; I10 Essential (primary) hypertension; G89.29 Other chronic pain; F51.04 Psychophysiologic insomnia; F41.9 Anxiety disorder, unspecified; J45.909 Unspecified asthma, uncomplicated; K21.9 Gastro-esophageal reflux disease without esophagitis; Z89.511 Acquired absence of right leg below knee; Z91.5 Personal history of self-harm; Z87.891 Personal history of nicotine dependence; Z86.74 Personal history of sudden cardiac arrest; Z79.899 Other long term (current) drug therapy
CPT/HCPCS: 80048; 81003; 82948; 85027; 90839; 97150 GO; 97165 GO; 99281; 99285; G0480; J1815; J7030

== ENCOUNTER 2017-07-02 09:41 | Emergency (ER) | payer OTHER ==
[~2017-07-02] VITALS: Ht 177.8 cm; Wt 114.0 kg
[~2017-07-02 09:41] MED LIST changes: +DULOXETINE HCL30 MG PO
[2017-07-02] MEDS ORDERED: PERCOCET 5/31 TABLET PO (14:37)
[2017-07-02 15:30] VITALS: BP 112/68
== END 2017-07-02 15:45 | disposition home or self-care (01) ==
LOC: EME 09:41
PROC: 2W3CX1Z Immobilization of Right Lower Arm using Splint (ICD-10-PCS; principal; 2017-07-02)
DX: S59.201A Unspecified physeal fracture of lower end of radius, right arm, initial encounter for closed fracture (principal); S52.611A Displaced fracture of right ulna styloid process, initial encounter for closed fracture; W18.30XA Fall on same level, unspecified, initial encounter; Z89.511 Acquired absence of right leg below knee; K21.9 Gastro-esophageal reflux disease without esophagitis; E11.9 Type 2 diabetes mellitus without complications; I10 Essential (primary) hypertension; J45.909 Unspecified asthma, uncomplicated; Z86.74 Personal history of sudden cardiac arrest; Z87.891 Personal history of nicotine dependence; Z79.4 Long term (current) use of insulin; Z88.0 Allergy status to penicillin
CPT/HCPCS: 73090; 73110; 99281; 99285; G8978 GP CK; G8979 GP CI; G8980 GP CK; G8987 GO CJ; G8988 GO CH; G8989 CJ; J3010

== ENCOUNTER → 2017-07-05 | Outpatient (CLI) | payer OTHER ==
[~2017-07-05] MED LIST changes: +PERCOCET 5/31 TABLET PO
== END | disposition home or self-care (01) ==
LOC: CDC 15:33
DX: M25.531 Pain in right wrist (principal); S52.531A Colles' fracture of right radius, initial encounter for closed fracture; S52.691A Other fracture of lower end of right ulna, initial encounter for closed fracture
CPT/HCPCS: 93000

== ENCOUNTER 2017-07-12 07:31 | Emergency (ER) | payer OTHER ==
[~2017-07-12] VITALS: Ht 177.8 cm; Wt 114.3 kg
[2017-07-12 06:36] VITALS: BP 108/63
[2017-07-12 06:48] VITALS: BP 108/63
[~2017-07-12 07:31] MED LIST changes: +CYMBALTA30 MG PO; +HUMALOG100 UNIT/2 SC
[2017-07-12 08:35] LABS: HEMATOCRIT 34.4 % (38.0-50.0); HEMOGLOBIN 12.1 G/DL (12.5-16.6); MCH 31.2 PG (29.0-34.0); MCHC 35.2 G/DL (30.0-36.0); MCV 88.7 FL (86-99); PLATELET COUNT 187 K/uL (156-360); RBC DIS.WIDTH-CV 12.3 % (11.8-14.6); RBC DIS.WIDTH-SD 39.3 % (39-53); RED BLOOD COUNT 3.88 M/uL (4.00-5.50); WHITE BLOOD COUNT 7.8 K/uL (4.1-10.2)
[2017-07-12 08:43] LABS: CHLORIDE 95 mEq/L (99-109); POTASSIUM 5.3 mEq/L (3.7-5.4); SODIUM 130 mEq/L (136-147)
[2017-07-12 08:49] LABS: CREATININE 1.7 mg/dL (0.6-1.3); GFR ESTIMATE (CALCULATED) 44 mL/min/ (58.99-99999); UREA NITROGEN (BUN) 19 mg/dL (9-23)
[2017-07-12 08:52] LABS: GLUCOSE 534 mg/dL (70-99)
[2017-07-12 10:53] VITALS: BP 120/73
== END 2017-07-12 10:30 | disposition home or self-care (01) ==
LOC: EME 07:31 → EDSTATUS 07:35 → EME 10:30 → SDC 11:19
PROVIDERS: Nurse Practitioner Family; Orthopaedic Surgery
DX: E11.65 Type 2 diabetes mellitus with hyperglycemia (principal); E11.22 Type 2 diabetes mellitus with diabetic chronic kidney disease; N18.9 Chronic kidney disease, unspecified; Z79.4 Long term (current) use of insulin; T38.3X6A Underdosing of insulin and oral hypoglycemic [antidiabetic] drugs, initial encounter; Z91.128 Patient's intentional underdosing of medication regimen for other reason; Z89.512 Acquired absence of left leg below knee; J45.909 Unspecified asthma, uncomplicated; Z88.0 Allergy status to penicillin; Z87.891 Personal history of nicotine dependence; Z86.74 Personal history of sudden cardiac arrest
CPT/HCPCS: 80048; 82948; 85027; 87641; 99281; 99284; J0131; J0330; J1100; J2250; J2405; J3010; J7120; S0020

== ENCOUNTER 2017-08-08 10:02 | Day surgery (SDC) | payer OTHER ==
[~2017-08-08] VITALS: Ht 177.8 cm; Wt 113.4 kg
[2017-08-08 12:01] VITALS: BP 111/65
[2017-08-08 17:16] VITALS: BP 155/79
[2017-08-08 18:20] VITALS: BP 159/85
[2017-08-08 18:45] VITALS: BP 159/80
== END 2017-08-08 19:00 | disposition home or self-care (01) ==
LOC: SDC 10:02
PROVIDERS: Orthopaedic Surgery Hand Surgery
DX: S52.571A Other intraarticular fracture of lower end of right radius, initial encounter for closed fracture (principal); S52.611A Displaced fracture of right ulna styloid process, initial encounter for closed fracture; W18.39XA Other fall on same level, initial encounter; Y93.01 Activity, walking, marching and hiking; Y92.007 Garden or yard of unspecified non-institutional (private) residence as the place of occurrence of the external cause; I10 Essential (primary) hypertension; E11.9 Type 2 diabetes mellitus without complications; K21.9 Gastro-esophageal reflux disease without esophagitis; G47.30 Sleep apnea, unspecified; Z79.4 Long term (current) use of insulin; Z87.891 Personal history of nicotine dependence
CPT/HCPCS: 73100; 76000; 82948; 87641; C1713; J0690; J1170; J2405; J3010; J3370; S0020

== ENCOUNTER 2017-09-14 16:03 | Inpatient (IN) | payer OTHER ==
[~2017-09-14] VITALS: Ht 177.8 cm; Wt 123.3 kg
[2017-09-14] MEDS ORDERED: ALKA SELTZER P PO (16:34)
[2017-09-14 16:51] LABS: BASOPHIL (%) 0.2 % (0-1); EOSINOPHIL (%) 1.1 % (0-5); EOSINOPHIL COUNT 0.1 K/uL (0-0.3); HEMATOCRIT 27.4 % (38.0-50.0); HEMOGLOBIN 9.6 G/DL (12.5-16.6); LYMPHOCYTE (%) 6.2 % (15-42); LYMPHOCYTE COUNT 0.7 K/uL (1.0-2.8); MCH 30.3 PG (29.0-34.0); MCV 86.4 FL (86-99); MONOCYTE (%) 9.5 % (3-12); MONOCYTE COUNT 1.1 K/uL (0-0.8); NEUTROPHIL COUNT 9.1 K/uL (1.8-6.4); PLATELET COUNT 223 K/uL (156-360); RBC DIS.WIDTH-CV 13.1 % (11.8-14.6); RBC DIS.WIDTH-SD 41.5 % (39-53); RED BLOOD COUNT 3.17 M/uL (4.00-5.50); WHITE BLOOD COUNT 11.4 K/uL (4.1-10.2)
[2017-09-14 17:16] VITALS: BP 116/55
[2017-09-14 17:22] LABS: CHLORIDE 91 MEQ/L (99-109); CREATININE 2.1 MG/DL (0.6-1.3); GFR ESTIMATE (CALCULATED) 34 mL/min/ (58.99-99999); POTASSIUM 4.9 MEQ/L (3.7-5.4); SODIUM 123 MEQ/L (136-147)
[2017-09-14 17:24] LABS: UREA NITROGEN (BUN) 39 mg/dL (9-23)
[2017-09-14 17:29] LABS: GLUCOSE 473 mg/dL (70-99)
[2017-09-14 17:33] LABS: ERTH.SED.RATE 122 MM/HR (0-20)
[2017-09-15 00:50] VITALS: BP 129/60
[2017-09-15 04:39] LABS: CHLORIDE 102 mEq/L (99-109); POTASSIUM 5.2 mEq/L (3.7-5.4)
[2017-09-15 04:40] LABS: GLUCOSE 274 mg/dL (70-99)
[2017-09-15 04:44] LABS: GFR ESTIMATE (CALCULATED) 36 mL/min/ (58.99-99999)
[2017-09-15 04:45] LABS: UREA NITROGEN (BUN) 34 mg/dL (9-23)
[2017-09-15 04:47] LABS: SODIUM 131 mEq/L (136-147)
[2017-09-15 04:51] VITALS: BP 132/58
[2017-09-15 07:38] LABS: HEMATOCRIT 24.5 % (38.0-50.0); HEMOGLOBIN 8.2 G/DL (12.5-16.6); MCV 88.8 FL (86-99)
[2017-09-15 08:01] LABS: CHLORIDE 99 MEQ/L (99-109); CREATININE 1.8 MG/DL (0.6-1.3); GFR ESTIMATE (CALCULATED) 41 mL/min/ (58.99-99999); GLUCOSE 297 mg/dL (70-99); POTASSIUM 5.1 MEQ/L (3.7-5.4); SODIUM 129 MEQ/L (136-147); UREA NITROGEN (BUN) 33 mg/dL (9-23)
[2017-09-15 08:07] LABS: THYROTROPIN (TSH) 0.54 MIU/L (0.4-5.5)
[2017-09-15 08:12] LABS: FERRITIN 565 NG/ML (22-322)
[2017-09-15 08:26] VITALS: BP 140/68
[2017-09-15 09:26] LABS: IRON < 10 MCG/DL (35-150)
[2017-09-15 12:25] VITALS: BP 167/80
[2017-09-15 16:56] VITALS: BP 144/61
[2017-09-15 19:59] VITALS: BP 145/65
[2017-09-16 08:01] LABS: HEMATOCRIT 23.9 % (38.0-50.0); MCV 88.8 FL (86-99)
[2017-09-16 08:16] VITALS: BP 146/65
[2017-09-16 16:07] VITALS: BP 138/67
[2017-09-16 21:28] LABS: APPEARANCE CLEAR ((CLEAR)); BILIRUBIN NEGATIVE; BLOOD MODERATE; COLOR STRAW ((YELLOW)); GLUCOSE (STRIP) >=500; KETONES NEGATIVE; LEUKOCYTES NEGATIVE; NITRITE NEGATIVE; PROTEIN (STRIP) NEGATIVE; SPECIFIC GRAVITY 1.015 (1.000-1.030); UROBILINOGEN 0.2 MG/DL (0.2-1.0)
[2017-09-16 21:46] LABS: BACTERIA NONE SEEN /HPF; EPITHELIAL CELLS RARE /HPF; MUCUS NONE SEEN /LPF; RED BLOOD CELLS 0-5 /HPF (0-5); WHITE BLOOD CELLS 0-5 /HPF (0-5)
[2017-09-16 23:46] VITALS: BP 113/56
[2017-09-17 06:59] LABS: HEMATOCRIT 23.5 % (38.0-50.0); HEMOGLOBIN 7.8 G/DL (12.5-16.6); MCH 29.7 PG (29.0-34.0); MCHC 33.2 G/DL (30.0-36.0); MCV 89.4 FL (86-99); RBC DIS.WIDTH-CV 13.5 % (11.8-14.6); RBC DIS.WIDTH-SD 43.8 % (39-53); RED BLOOD COUNT 2.63 M/uL (4.00-5.50); WHITE BLOOD COUNT 8.8 K/uL (4.1-10.2)
[2017-09-17 07:00] LABS: PLATELET COUNT 301 K/uL (156-360)
[2017-09-17 07:29] LABS: ABS NEUTROPHIL COUNT 6.7; BASOPHILS 0.9 %; EOSINOPHIL ABS CT 0.1; EOSINOPHILS 1.7 % (0-5.0); LYMPHOCYTES 12.2 % (15.0-45.0); METAMYELOCYTES 0.9 %; MONOCYTES 4.3 % (0-9.0); MYELOCYTES 3.5 %; PLAT.SUFFICIENCY ADEQUATE; SEG.NEUTROPHILS 76.5 % (46.0-76.0); SMUDGE CELLS 3.5
[2017-09-17 07:36] LABS: CHLORIDE 99 MEQ/L (99-109); CREATININE 1.5 MG/DL (0.6-1.3); GFR ESTIMATE (CALCULATED) 51 mL/min/ (58.99-99999); POTASSIUM 4.3 MEQ/L (3.7-5.4); SODIUM 134 MEQ/L (136-147); UREA NITROGEN (BUN) 19 mg/dL (9-23)
[2017-09-17 07:38] LABS: GLUCOSE 132 mg/dL (70-99)
[2017-09-17 07:57] VITALS: BP 145/70
[2017-09-17 16:07] VITALS: BP 127/73
[2017-09-17 23:57] VITALS: BP 114/56
[2017-09-18 07:35] LABS: HEMATOCRIT 24.3 % (38.0-50.0); HEMOGLOBIN 8.1 G/DL (12.5-16.6); MCH 29.9 PG (29.0-34.0); MCHC 33.3 G/DL (30.0-36.0); MCV 89.7 FL (86-99); PLATELET COUNT 351 K/uL (156-360); RBC DIS.WIDTH-CV 13.4 % (11.8-14.6); RBC DIS.WIDTH-SD 43.8 % (39-53); RED BLOOD COUNT 2.71 M/uL (4.00-5.50); WHITE BLOOD COUNT 10.8 K/uL (4.1-10.2)
[2017-09-18 07:59] LABS: CHLORIDE 98 MEQ/L (99-109); CREATININE 1.4 MG/DL (0.6-1.3); GFR ESTIMATE (CALCULATED) 55 mL/min/ (58.99-99999); POTASSIUM 4.7 MEQ/L (3.7-5.4); SODIUM 136 MEQ/L (136-147); UREA NITROGEN (BUN) 16 mg/dL (9-23)
[2017-09-18 08:00] LABS: GLUCOSE 81 mg/dL (70-99)
[2017-09-18 08:19] LABS: ABS NEUTROPHIL COUNT 8.2; ANISOCYTOSIS 1+; BAND NEUTROPHILS 3.5 % (0-8.0); EOSINOPHIL ABS CT 0.2; EOSINOPHILS 1.7 % (0-5.0); HYPOCHROMASIA 3+; LYMPHOCYTES 14.8 % (15.0-45.0); METAMYELOCYTES 2.6 %; MICROCYTOSIS 1+; MONOCYTES 3.5 % (0-9.0); MYELOCYTES 1.7 %; PLAT.SUFFICIENCY ADEQUATE; SEG.NEUTROPHILS 72.2 % (46.0-76.0)
[2017-09-18 08:20] VITALS: BP 147/70
[2017-09-18 15:52] VITALS: BP 153/72
[2017-09-18 23:37] VITALS: BP 136/67
[2017-09-19 08:12] VITALS: BP 159/88
[2017-09-19] MEDS ORDERED: BENADRYL25 MG PO (10:19)
[2017-09-19] MEDS ORDERED: SENNA PLUS TAB1 EACH PO (10:23)
[2017-09-19] MEDS ORDERED: ENDOCET 5-3251 EACH PO (10:24)
[2017-09-19] MEDS ORDERED: ANCEF,KEFZOL1 GM IV (10:24)
[2017-09-19 16:19] VITALS: BP 163/92
== END 2017-09-19 18:43 | DRG 857 ==
LOC: SDC 16:03 → 2SOUTH 22:06 → ENRESERV 22:06 → 3EAST 22:06 → ENRESERV 22:41 → 2SOUTH 09-15 00:44 → 3EAST 09-15 00:45
PROVIDERS: Hospitalist; Internal Medicine; Orthopaedic Surgery Sports Medicine
PROC: 0RBN0ZZ Excision of Right Wrist Joint, Open Approach (ICD-10-PCS; principal; 2017-09-14)
PROC: 0PSH05Z Reposition Right Radius with External Fixation Device, Open Approach (ICD-10-PCS; principal; 2017-09-14)
PROC: 0PPK04Z Removal of Internal Fixation Device from Right Ulna, Open Approach (ICD-10-PCS; principal; 2017-09-14)
PROC: 0PBH0ZZ Excision of Right Radius, Open Approach (ICD-10-PCS; principal; 2017-09-14)
PROC: 3E0V329 Introduction of Other Anti-infective into Bones, Percutaneous Approach (ICD-10-PCS; principal; 2017-09-14)
PROC: 0PBK0ZZ Excision of Right Ulna, Open Approach (ICD-10-PCS; principal; 2017-09-14)
PROC: 0PPH04Z Removal of Internal Fixation Device from Right Radius, Open Approach (ICD-10-PCS; principal; 2017-09-14)
PROC: 0PSH35Z Reposition Right Radius with External Fixation Device, Percutaneous Approach (ICD-10-PCS; 2017-09-15)
PROC: 0PDK0ZZ Extraction of Right Ulna, Open Approach (ICD-10-PCS; 2017-09-17)
PROC: 0PDH0ZZ Extraction of Right Radius, Open Approach (ICD-10-PCS; 2017-09-17)
DX: T81.4XXA Infection following a procedure, initial encounter (principal); E87.1 Hypo-osmolality and hyponatremia; S52.571A Other intraarticular fracture of lower end of right radius, initial encounter for closed fracture; S52.611K Displaced fracture of right ulna styloid process, subsequent encounter for closed fracture with nonunion; B95.61 Methicillin susceptible Staphylococcus aureus infection as the cause of diseases classified elsewhere; E11.65 Type 2 diabetes mellitus with hyperglycemia; E11.42 Type 2 diabetes mellitus with diabetic polyneuropathy; E11.22 Type 2 diabetes mellitus with diabetic chronic kidney disease; I12.9 Hypertensive chronic kidney disease with stage 1 through stage 4 chronic kidney disease, or unspecified chronic kidney disease; N18.3 Chronic kidney disease, stage 3 (moderate); W18.30XA Fall on same level, unspecified, initial encounter; Y92.009 Unspecified place in unspecified non-institutional (private) residence as the place of occurrence of the external cause; E78.5 Hyperlipidemia, unspecified; F31.9 Bipolar disorder, unspecified; F41.9 Anxiety disorder, unspecified; M19.90 Unspecified osteoarthritis, unspecified site; E66.9 Obesity, unspecified; Z68.38 Body mass index [BMI] 38.0-38.9, adult; Z89.511 Acquired absence of right leg below knee; Z87.891 Personal history of nicotine dependence; Z79.4 Long term (current) use of insulin
CPT/HCPCS: 36415; 71045; 73100; 73110; 76000; 76937; 80048; 80048 91; 80053; 80061; 81003; 82043; 82306; 82436; 82570; 82607; 82728; 82746; 82948; 83036; 83540; 84133; 84300; 84443; 85014; 85018; 85025; 85651; 86140; 86850; 86900; 86901; 87070; 87075; 87205; 87641; 97530 GO; 97530 GP; C1713; J0690; J1170; J1644; J1815; J2250; J2405; J3010; J3370; J7030; J7120

== ENCOUNTER 2017-10-03 12:19 | Day surgery (SDC) | payer OTHER ==
[~2017-10-03] VITALS: Ht 177.8 cm; Wt 103.4 kg
[~2017-10-03 12:19] MED LIST changes: +ALKA SELTZER P PO; +ANCEF,KEFZOL1 GM IV; +ATORVASTATIN CA20 MG PO; +BENADRYL25 MG PO; +IRON325 M1 PO; +TRAZODONE HCL50 MG PO; +TYLENOL REGULA325 MG PO
[2017-10-03 12:46] VITALS: BP 136/81
[2017-10-03 17:55] VITALS: BP 163/70
[2017-10-03 18:32] VITALS: BP 142/77
== END 2017-10-03 18:38 | disposition home or self-care (01) ==
LOC: SDC 12:19
PROVIDERS: Orthopaedic Surgery Hand Surgery
DX: T81.4XXA Infection following a procedure, initial encounter (principal); G47.30 Sleep apnea, unspecified; E11.9 Type 2 diabetes mellitus without complications; J45.909 Unspecified asthma, uncomplicated; Z79.4 Long term (current) use of insulin; Z87.891 Personal history of nicotine dependence
CPT/HCPCS: 82948; 87641; J0131; J0690; J1100; J1170; J2250; J3010; S0020